=== PATIENT | male | born 1945 | race Caucasian/White ===

== ENCOUNTER 2017-09-21 11:33 | Emergency (ER) | payer BC ==
[2017-09-21] MEDS ORDERED: 0.9 % SODIUM CHLORIDE 10 ML DISP.SYRIN. IV (12:45)
[2017-09-21 12:58] LABS: BASO % 0 % (0-3); EOS % 1 % (0-3); HEMATOCRIT 39.2 % (39.0-53.0); HEMOGLOBIN 13.1 g/dL (13.0-17.5); LYMPH # 0.9 x10^3/uL (1.0-4.8); LYMPH % 9 % (24-48); MEAN CORPUSCULAR HEMOGLOBIN 25 pg (25-35); MEAN CORPUSCULAR HGB CONC 34 g/dL (31-37); MEAN CORPUSCULAR VOLUME 76 fL (79-100); MONO # 0.5 x10^3/uL (0.0-1.1); MONO % 5 % (0-9); NEUT # 8.2 x10^3uL (1.8-7.7); NEUT % 85 % (31-73); PLATELET COUNT 204 x10^3/uL (140-400); RED CELL DISTRIBUTION WIDTH 16.3 % (11.5-14.5); WHITE BLOOD COUNT 9.6 x10^3/uL (4.0-11.0)
[2017-09-21 12:59] LABS: ADD MAN DIFF? YES
[2017-09-21 13:08] LABS: D-DIMER 1.29 ug/mlFEU (0.00-0.50)
[2017-09-21 13:12] LABS: ANION GAP 12 (6-14); BLOOD UREA NITROGEN 19 mg/dL (8-26); CALCIUM 8.6 mg/dL (8.5-10.1); CARBON DIOXIDE 24 mmol/L (21-32); CHLORIDE 108 mmol/L (98-107); CREATININE 0.9 mg/dL (0.7-1.3); GFR 82.7; GLUCOSE 146 mg/dL (70-99); POTASSIUM 3.7 mmol/L (3.5-5.1); SODIUM 144 mmol/L (136-145)
[2017-09-21 13:17] LABS: TROPONINI < 0.017 ng/mL (0.000-0.055)
[2017-09-21 13:20] LABS: ALBUMIN 3.5 g/dL (3.4-5.0); ALK PHOS 81 U/L (46-116); ALT (SGPT) 29 U/L (16-63); AST (SGOT) 24 U/L (15-37); DIRECT BILIRUBIN 0.2 mg/dL (0.0-0.2); LIPASE 118 U/L (73-393); MAGNESIUM 1.7 mg/dL (1.8-2.4); TOTAL BILIRUBIN 0.9 mg/dL (0.2-1.0); TOTAL PROTEIN 6.7 g/dL (6.4-8.2)
[2017-09-21] MEDS: IV NORMAL SALINE 1000ML BAG 1,000 ML IV (13:20)
[2017-09-21 13:21] LABS: THYROID STIM HORMONE (TSH) 1.521 uIU/mL (0.358-3.74)
[2017-09-21 13:23] LABS: CKMB INDEX 2.3 % (0-4); CKMB MASS 9.8 ng/mL (0.0-3.6); CREATINE KINASE 426 U/L (39-308)
[2017-09-21 13:23] LABS: NT-PRO BNP 98 pg/mL (0-124)
[2017-09-21 13:27] LABS: % BANDS 1 % (0-9); % LYMPHS 9 % (24-48); % MONOS 4 % (0-10); % SEGS 86 % (35-66); PLT ESTIMATE ADEQUATE (ADEQUATE)
[2017-09-21] MEDS: DIPHTH,PERTUSS(ACELL),TET TOX 0.5 ML DISP.SYRIN. VAX IM (14:15)
[2017-09-21] MEDS ORDERED: LIDOCAINE WITH 8.4% SOD BICARB 3 ML DISP.SYRIN. (14:34)
[2017-09-21 14:39] LABS: BILIRUBIN,URINE NEGATIVE (NEG); CLARITY,URINE CLEAR; COLOR,URINE YELLOW; GLUCOSE,URINE NEGATIVE (NEG); NITRITE,URINE POSITIVE (NEG); PH,URINE 5.5; PROTEIN,URINE NEGATIVE (NEG-TRACE)
[2017-09-21] MEDS: LIDOCAINE WITH 8.4% SOD BICARB 3 ML DISP.SYRIN. INJ (14:44)
[2017-09-21] MEDS: LIDOCAINE 1% PF 30 ML VIAL. INJ (14:45)
[2017-09-21 14:48] LABS: BACTERIA,URINE MANY /HPF (0-FEW); HYALINE CASTS, URINE MODERATE /HPF; RBC,URINE 0 /HPF (0-2); SQUAMOUS EPITHELIAL CELL,UR FEW /LPF; WBC,URINE >40 /HPF (0-4)
== END 2017-09-21 16:02 | disposition home or self-care (01) ==
LOC: ER 11:33
DX: S01.511A Laceration without foreign body of lip, initial encounter (principal); R55 Syncope and collapse; I10 Essential (primary) hypertension; E78.00 Pure hypercholesterolemia, unspecified; E66.9 Obesity, unspecified; Z68.34 Body mass index [BMI] 34.0-34.9, adult; Z96.653 Presence of artificial knee joint, bilateral; W18.39XA Other fall on same level, initial encounter; Y93.01 Activity, walking, marching and hiking; Y92.89 Other specified places as the place of occurrence of the external cause; Y99.8 Other external cause status
CPT/HCPCS: 12011; 36415; 70450; 70486; 71045; 72125; 80048; 80076; 81001; 82553; 83690; 83735; 83880; 84443; 84484; 85007; 85025; 85379; 87086; 90471; 90715; 93005; 96360; 99285-25; J7030